=== PATIENT | male | born 2000 | race Caucasian/White ===

== ENCOUNTER 2020-03-10 23:07 | Emergency (ER) | payer SELFPAY ==
[~2020-03-10] VITALS: Ht 200.7 cm; Wt 104.3 kg
[2020-03-10 23:10] VITALS: BP 132/81
--- NOTE | 2020-03-10 23:10 | NUR ---
ED Nurse Note: Pt brought in by MARKIE for medical clearence. Pt reports cough for two days. No pain. Pt is aaox4, breathing is normal and unlabored. VSS, NAD.
--- NOTE | 2020-03-10 23:12 | Emergency Room Report ---
History of Present Illness General Chief Complaint: To Be Triaged Source: Patient Present Illness HPI This is a 19-year-old male with no past medical history. He was brought in by police for medical clearance because he has a chief complaint of a cough. He was arrested for looting and theft during the right. Patient complained of a cough. He had a nonproductive cough for the last 2 days. No fever chills but no nausea no vomiting. No sick contact. Denies any other complaint. Patient History Past Medical History: see triage record, old chart reviewed Past Surgical History: none Pertinent Family History: none Social History: Denies: drug use Immunizations: other Reviewed Nursing Documentation: PMH: Agreed; PSxH: Agreed Review of Systems Eye: Denies: eye pain, blurred vision ENT: Denies: ear pain, nose congestion, throat swelling Respiratory: Reports: cough; Denies: shortness of breath Cardiovascular: Denies: chest pain, palpitations Gastrointestinal: Denies: abdominal pain, diarrhea, nausea, vomiting Musculoskeletal: Denies: back pain, joint pain Skin: Denies: rash Neurological: Denies: headache, numbness Endocrine: Denies: increased thirst, increased urine Hematologic/Lymphatic: Denies: easy bruising All Other Systems: negative except mentioned in HPI Physical Exam Vitals normal Sp02 EP Interpretation: reviewed, normal General Appearance: well appearing, no apparent distress, alert Head: normocephalic, atraumatic Eyes: bilateral eye PERRL, bilateral eye EOMI ENT: hearing grossly normal, normal pharynx Neck: full range of motion, supple, no meningismus Respiratory: chest non-tender, lungs clear, normal breath sounds Cardiovascular #1: regular rate, rhythm, no murmur Gastrointestinal: normal bowel sounds, non tender, no mass, no organomegaly, no bruit, non-distended Musculoskeletal: back normal, normal range of motion, gait/station normal Psychiatric: mood/affect normal Medical Decision Making Diagnostic Impression: Primary Impression: Cough in adult Additional Impression: Examination, medicolegal reason ER Course Patient here for medical clearance. He has a cough but no active coughing here. Lungs are clear. Will discharge to police shift commander. Explained that patient can get COVID testing as an outpatient. Status: unchanged Disposition: LAW ENFORCEMENT IN CUST Condition: Stable Additional Instructions: Follow-up with your doctor in 7 days. You can check the [facility] website to get outpatient cover testing. Return if symptoms worsen. Jerardo Rodgers MD Mar 10, 2020 23:12
[2020-03-10 23:17] VITALS: BP 132/81
--- NOTE | 2020-03-10 23:17 | NUR ---
ER DISCHARGE NOTE: Patient is cleared to be discharged per ERMD, pt is aox4, on room air, with stable vital signs. pt was given dc instructions, pt was able to verbalize understanding, pt id band removed. pt is able to ambulate with steady gait. pt took all belongings and accompanied by LASD. LASD given OK to book.
== END 2020-03-10 23:30 ==
LOC: EMR 23:26
DX: R05 Cough (principal)
CPT/HCPCS: 99281